=== PATIENT | female | born 1970 | race Hispanic/Latino ===

== ENCOUNTER → 2019-07-26 | Day surgery (SDC) | payer BC, OTHER ==
[2019-07-21 15:48] LABS: ANION GAP 15.5 mmol/L (8-16); BLOOD UREA NITROGEN 11 mg/dL (7-26); BUN/CREATININE RATIO 14 (6-25); CALCIUM 10.7 mg/dL (8.4-10.2); CARBON DIOXIDE 25 mmol/L (22-29); CHLORIDE 100 mmol/L (98-107); CREATININE, SERUM 0.81 mg/dL (0.57-1.11); EST GLOMERULAR FILTRATION RATE > 60 ML/MIN (60-); GLUCOSE 107 mg/dL (74-118); POTASSIUM 3.5 mmol/L (3.5-5.1); SODIUM 137 mmol/L (136-145)
[~2019-07-26] MED LIST: ACETAMINOPHEN 1000 MG/100 ML IV ONE; BUPIVACAINE HCL 0.5% INJ 30 ML VIAL INJ ONE; CEFAZOLIN SOD 1 GM/NS 50ML 50 ML IV ONE; DEXAMETHASONE SOD PHOS INJ 4 MG/ML VIAL ONE; FENTANYL CITRATE/PF 100MCG/2 ML INJ ONE; HYDROCHLOROTHIA25 MG PO; LEVOTHYROXINE50 MCG PO; LEXAPRO10 MG PO; LIDOCAINE HCL 2% LOCAL INJ 5 ML SDV VIAL INJ ONE; LISINOPRIL2.5 MG PO; MIDAZOLAM HCL 2 MG/2 ML VIAL ONE; MUPIROCIN 2% OINT 22 GM TUBE ONE; OMEPRAZOLE40 MG PO; ONDANSETRON HCL INJ 2MG/ML 2ML 2 MG/ML VIAL ONE; PROPOFOL IV EMULSION 10 MG/ML 20 ML VIAL ONE; SEVOFLURANE INHAL SOLN 250 ML PEN BTL ONE
--- NOTE | 2019-07-26 07:10 | NUR ---
SPIRITUAL CARE - Pre-Surgery Assessment: Pt in bed. Pt's daughter at bedside. Pt reported supportive attention from family and friends. Intervention: I provided pastoral presence, hospitality, and sympathetic listening. I acquainted pt with availability of garment looper while hospitalized. Outcome: Pt expressed appreciation for visit. No need for follow up indicated at this time. [facility] Spiritual Care Department O: [phone] Pager: [phone] ([phone] number calling from)
[2019-07-26 08:55] VITALS: BP 128/59
--- NOTE | 2019-07-26 17:14 | Operative Report ---
DATE OF PROCEDURE: SURGEON: Donnell Farah MD PREOPERATIVE DIAGNOSIS: Right hand carpal tunnel syndrome. POSTOPERATIVE DIAGNOSES: 1. Right hand carpal tunnel syndrome. 2. Flexor tenosynovitis, right wrist. PROCEDURE: 1. Right hand open carpal tunnel release. 2. Flexor tenosynovectomy, right wrist. ANESTHESIA: General. HISTORY: The patient is a 49-year-old with EMG-proven right hand carpal tunnel syndrome. Risks, benefits and alternatives of treatment were discussed with the patient. The patient is prepared to undergo the procedure as outlined. DESCRIPTION OF PROCEDURE: The patient was brought to the operating theater. After the induction of adequate general inhalation anesthesia, the patient was prepped and draped in the supine position. A time out was performed by the entire operating room team. A 2.5 cm incision was marked out in the intrathenar space. The right upper extremity was exsanguinated, and a tourniquet was inflated to a pressure of 250 mmHg. The incision was made through the skin and subcutaneous tissues and all venous tributaries were controlled with bipolar cautery. The incision was deepened through the palmar fascia until the transverse carpal ligament was identified. The ligament was sharply sectioned, taking care to protect and preserve the median nerve underlying it. After the complete width of the ligament had been transected, the distal volar forearm fascia was divided under direct view. Proliferative flexor tenosynovium was noticed to encompass the median nerve and this was radically excised. After performing this maneuver, the nerve was noted to lie adequately decompressed. The wound was copiously irrigated with bacteriostatic saline, closed with 5-0 nylon in an interrupted horizontal mattress fashion. A Marcaine field block was performed at the operative site. Tourniquet was deflated. All of the fingers pinked up nicely and a sterile bulking conforming bandage was applied to the hand and the wrist. A fiberglass splint was fashioned to maintain the wrist in a modest amount of extension. This was held in place with a loosely wrapped Rome wrap. The patient tolerated the procedure well and was brought to the recovery room in satisfactory condition and discharged with a postoperative instruction sheet as well as a followup appointment. Donnell Farah MD ER/MODL /[id number]
== END | disposition home or self-care (01) ==
LOC: OR 05:37
PROVIDERS: ATTEND Plastic Surgery
DX: G56.01 Carpal tunnel syndrome, right upper limb (principal); M65.831 Other synovitis and tenosynovitis, right forearm; I10 Essential (primary) hypertension; E03.9 Hypothyroidism, unspecified; K21.9 Gastro-esophageal reflux disease without esophagitis; Z01.810 Encounter for preprocedural cardiovascular examination; Z01.812 Encounter for preprocedural laboratory examination
CPT/HCPCS: 25115; 36415; 80048; 93005; J0131; J0690; J1100; J2001; J2250; J2405; J2704; J3010

== ENCOUNTER 2019-08-14 08:02 | Emergency (ER) | payer BC, OTHER ==
[~2019-08-14] VITALS: Ht 154.9 cm; Wt 80.3 kg
[~2019-08-14 08:02] MED LIST changes: -ACETAMINOPHEN 1000 MG/100 ML IV ONE; -BUPIVACAINE HCL 0.5% INJ 30 ML VIAL INJ ONE; -CEFAZOLIN SOD 1 GM/NS 50ML 50 ML IV ONE; -DEXAMETHASONE SOD PHOS INJ 4 MG/ML VIAL ONE; -FENTANYL CITRATE/PF 100MCG/2 ML INJ ONE; -LIDOCAINE HCL 2% LOCAL INJ 5 ML SDV VIAL INJ ONE; -MIDAZOLAM HCL 2 MG/2 ML VIAL ONE; -MUPIROCIN 2% OINT 22 GM TUBE ONE; -ONDANSETRON HCL INJ 2MG/ML 2ML 2 MG/ML VIAL ONE; -PROPOFOL IV EMULSION 10 MG/ML 20 ML VIAL ONE; -SEVOFLURANE INHAL SOLN 250 ML PEN BTL ONE
[2019-08-14] MEDS ORDERED: KETOROLAC TROMETHAMINE 60 MG/2 ML VIAL IM ONE (08:45)
[2019-08-14] MEDS ORDERED: KETOROLAC TROMETHAMINE 60 MG/2 ML VIAL ONE (08:58)
--- NOTE | 2019-08-14 09:19 | Diagnostic Imaging Report ---
History: Left pain Comparison studies: None Technique: Axial images were obtained through the cervical region. Coronal and sagittal images reconstructed from the axial data. Dose modulation, iterative reconstruction, and/or weight based adjustment of the mA/kV was utilized to reduce the radiation dose to as low as reasonably achievable. Intravenous contrast: None Findings: Airway: Patent. Atlantoaxial articulation: Intact Alignment: Normal lordosis No scoliosis. Cervicomedullary junction: No abnormalities. Patent foramen magnum. Soft tissues: Incidental 7 mm calcified nodule in the right lobe of the thyroid. Vertebrae: Incidental 6 mm lucent cyst in the left aspect of the C4 vertebral body Otherwise, normal in height and density. No fractures, neoplasm or infection. Degenerative changes: C2-C3: Mild left foraminal stenosis due to facet arthrosis. Patent spinal canal and foramina. C3-4: Mild right facet and uncoarthrosis but no significant foraminal stenosis. Patent left foramen and spinal canal. C4-5: Mild left foraminal stenosis due to facet and uncoarthrosis. Patent right foramen and spinal canal. C5-6: Mildly degenerated disc. Mild bilateral foraminal stenosis due to uncoarthrosis. Mild spinal canal stenosis due to a disc osteophyte complex. . C6-7: Mild left foraminal stenosis due to facet and uncoarthrosis. Patent right foramen and spinal canal. C7-T1: No abnormalities. IMPRESSION: No acute abnormalities. Degenerative changes include: 1. Mild foraminal stenosis on the left at C2-3, right at C3-4, bilaterally at C5-6 and on the left at C6-7. Clinical relevance depends on the location of patient's symptoms. 2. Mildly degenerated disc and mild spinal canal stenosis at C5-6. Signed by: Dr. Zac Rouse M.D. on 08/14/2019 9:16 AM
[2019-08-14 09:40] VITALS: BP 120/62
== END 2019-08-14 09:45 | disposition home or self-care (01) ==
LOC: FSED 08:02
DX: M54.12 Radiculopathy, cervical region (principal); I10 Essential (primary) hypertension
CPT/HCPCS: 72125; 99283; J1885

== ENCOUNTER → 2019-08-30 | Day surgery (SDC) | payer BC, OTHER ==
[2019-08-26 12:20] LABS: ANION GAP 13.6 mmol/L (8-16); BLOOD UREA NITROGEN 11 mg/dL (7-26); BUN/CREATININE RATIO 13 (6-25); CARBON DIOXIDE 25 mmol/L (22-29); CHLORIDE 100 mmol/L (98-107); CREATININE, SERUM 0.82 mg/dL (0.57-1.11); EST GLOMERULAR FILTRATION RATE > 60 ML/MIN (60-); GLUCOSE 117 mg/dL (74-118); POTASSIUM 3.6 mmol/L (3.5-5.1); SODIUM 135 mmol/L (136-145)
[~2019-08-30] MED LIST changes: +BUPIVACAINE HCL 0.5% INJ 30 ML VIAL INJ ONE; +CEFAZOLIN SOD 1 GM/NS 50ML 50 ML IV ONE; +DEXAMETHASONE SOD PHOS INJ 4 MG/ML VIAL ONE; +KETOROLAC TROMETHAMINE 30 MG/ML VIAL ONE; +LIDOCAINE HCL 2% LOCAL INJ 5 ML SDV VIAL INJ ONE; +MUPIROCIN 2% OINT 22 GM TUBE ONE; +NABUMETONE500 MG PO; +ONDANSETRON HCL INJ 2MG/ML 2ML 2 MG/ML VIAL ONE; +PROPOFOL IV EMULSION 10 MG/ML 20 ML VIAL ONE; +SEVOFLURANE INHAL SOLN 250 ML PEN BTL ONE; +TIZANIDINE HCL4 MG PO
--- OUTSIDE RECORDS SUMMARY | 2019-08-30 08:32 | XMS REPORT ---
[facility] Address Unknown Phone Unavailable Care Team Providers Care Web Site Admin Name Role Phone Feliz JAVIER Unavailable Unavailable Problems This patient has no known problems. Allergies, Adverse Reactions, Alerts This patient has no known allergies or adverse reactions. Medications This patient has no known medications. Results Test Description Test Time Test Comments Text Results Atomic Results Result Comments CT C-SPINE W/O - HOPD 2019-08-14 09:08:00 [place] [address] Patient Name: ABDIRASHID APPLE V MR #: [id number] : 1970 Age/Sex: 49/F Req #: [id number] Adm Physician: Ordered by: JUAN CARLOS JAVIER MD Report #: [id number] Location: [facility] Room/Bed: Procedure: [id number] HOPD/CT C-SPINE W/O - HOPD Exam Date: 08/14/19 Exam Time: 0904 REPORT STATUS: Signed History: Left pain Comparison studies: None Technique: Axial images were obtained through the cervical region. Coronal and sagittal images reconstructed from the axial data. Dose modulation, iterative reconstruction, and/or weight based adjustment of the mA/kV was utilized to reduce the radiation dose to as low as reasonably achievable. Intravenous contrast: None Findings: Airway: Patent. Atlantoaxial articulation: Intact Alignment: Normal lordosis No scoliosis. Cervicomedullary junction: No abnormalities. Patent foramen magnum. Soft tissues: Incidental 7 mm calcified nodule in the right lobe of the thyroid. Vertebrae: Incidental 6 mm lucent cyst in the left aspect of the C4 vertebral body Otherwise, normal in height and density. No fractures, neoplasm or infection. Degenerative changes: C2-C3: Mild left foraminal stenosis due to facet arthrosis. Patent spinal canal and foramina. C3-4: Mild right facet and uncoarthrosis but no significant foraminal stenosis. Patent left foramen and spinal canal. C4-5: Mild left foraminal stenosis due to facet and uncoarthrosis. Patent right foramen and spinal canal. C5-6: Mildly degenerated disc. Mild bilateral foraminal stenosis due to uncoarthrosis. Mild spinal canal stenosis due to a disc osteophyte complex. . C6-7: Mild left foraminal stenosis due to facet and uncoarthrosis. Patent right foramen and spinal canal. C7-T1: No abnormalities. IMPRESSION: No acute abnormalities. Degenerative changes include: 1. Mild foraminal stenosis on the left at C2-3, right at C3-4, bilaterally at C5-6 and on the left at C6-7. Clinical relevance depends on the location of patient's symptoms. 2. Mildly degenerated disc and mild spinal canal stenosis at C5-6. Signed by: Dr. Zac Rouse M.D. on 08/14/2019 9:16 AM Dictated By: ZAC ROUSE MD, MD 5 Transcribed By: WALTER on 08/14/19915 COPY TO: JUAN CARLOS JAVIER MD
[2019-08-30 08:55] VITALS: BP 114/68
--- NOTE | 2019-08-30 17:23 | Operative Report ---
DATE OF PROCEDURE: SURGEON: Donnell Farah MD PREOPERATIVE DIAGNOSIS: Left hand carpal tunnel syndrome. POSTOPERATIVE DIAGNOSES: 1. Left hand carpal tunnel syndrome. 2. Flexor tenosynovitis left wrist. PROCEDURE: 1. Left hand open carpal tunnel release. 2. Flexor tenosynovectomy left wrist. ANESTHESIA: General. HISTORY: The patient is a 49 years old with EMG-proven left hand carpal tunnel syndrome. Risks, benefits and alternatives of treatment were discussed with the patient. The patient is prepared to undergo the procedure as outlined. DESCRIPTION OF PROCEDURE: The patient was brought to the operating theater. After the induction of adequate general inhalation anesthesia, the patient was prepped and draped in the supine position. A time out was performed by the entire operating room team. A 2.5 cm incision was marked out in the intrathenar space. The left upper extremity was exsanguinated, and a tourniquet was inflated to a pressure of 250 mmHg. The incision was made through the skin and subcutaneous tissues and all venous tributaries were controlled with bipolar cautery. The incision was deepened through the palmar fascia until the transverse carpal ligament was identified. The ligament was sharply sectioned, taking care to protect and preserve the median nerve underlying it. After the complete width of the ligament had been transected, the distal volar forearm fascia was divided under direct view. Proliferative flexor tenosynovium was noticed to encompass the median nerve and this was radically excised. After performing this maneuver, the nerve was noted to lie adequately decompressed. The wound was copiously irrigated with bacteriostatic saline, closed with 5-0 nylon in an interrupted horizontal mattress fashion. A Marcaine field block was performed at the operative site. Tourniquet was deflated. All of the fingers pinked up nicely and a sterile bulking conforming bandage was applied to the hand and the wrist. A fiberglass splint was fashioned to maintain the wrist in a modest amount of extension. This was held in place with a loosely wrapped Rome wrap. The patient tolerated the procedure well and was brought to the recovery room in satisfactory condition and discharged with a postoperative instruction sheet as well as a followup appointment. MD ROLANDO Coburn/MODL /[id number]
== END | disposition home or self-care (01) ==
LOC: OR 05:17
PROVIDERS: ATTEND Plastic Surgery
DX: G56.02 Carpal tunnel syndrome, left upper limb (principal); M65.832 Other synovitis and tenosynovitis, left forearm; I10 Essential (primary) hypertension; F41.9 Anxiety disorder, unspecified
CPT/HCPCS: 25115; 36415; 80048; J0690; J1100; J1885; J2001; J2405; J2704

== ENCOUNTER → 2024-06-25 | Day surgery (SDC) | payer BC, OTHER ==
[~2024-06-25] MED LIST changes: -BUPIVACAINE HCL 0.5% INJ 30 ML VIAL INJ ONE; -CEFAZOLIN SOD 1 GM/NS 50ML 50 ML IV ONE; +CRESTOR40 MG; -DEXAMETHASONE SOD PHOS INJ 4 MG/ML VIAL ONE; +HYOSCYAMINE SULFATE 0.5 MG/ML INJ ONE; -KETOROLAC TROMETHAMINE 30 MG/ML VIAL ONE; -LIDOCAINE HCL 2% LOCAL INJ 5 ML SDV VIAL INJ ONE; -MUPIROCIN 2% OINT 22 GM TUBE ONE; -ONDANSETRON HCL INJ 2MG/ML 2ML 2 MG/ML VIAL ONE; -SEVOFLURANE INHAL SOLN 250 ML PEN BTL ONE
[2024-06-25] MEDS: LACTATED RINGER'S 1,000 ML ONE (14:12)
[2024-06-25 16:15] VITALS: BP 140/75; PULSE 89; RESP 16; TEMP 97.4; O2SAT 100
== END | disposition home or self-care (01) ==
LOC: OR 13:30
PROVIDERS: ATTEND Internal Medicine Gastroenterology
DX: Z09 Encounter for follow-up examination after completed treatment for conditions other than malignant neoplasm (principal); D12.3 Benign neoplasm of transverse colon; K64.8 Other hemorrhoids; K20.90 Esophagitis, unspecified without bleeding; K29.50 Unspecified chronic gastritis without bleeding; B96.81 Helicobacter pylori [H. pylori] as the cause of diseases classified elsewhere; Z80.0 Family history of malignant neoplasm of digestive organs; I10 Essential (primary) hypertension; E11.9 Type 2 diabetes mellitus without complications; E03.9 Hypothyroidism, unspecified; Z68.33 Body mass index [BMI] 33.0-33.9, adult; Z71.3 Dietary counseling and surveillance; Z01.810 Encounter for preprocedural cardiovascular examination; Z79.899 Other long term (current) drug therapy
CPT/HCPCS: 43239; 45385; 93005; J1980; J2470; J2704; J7121; 45384